=== PATIENT | female | born 1965 | race Caucasian/White ===

== ENCOUNTER → 2017-02-27 | Outpatient (CLI) | payer OTHER ==
[~2017-02-27] MED LIST: ALBUAER2 INH; FLUO10CA48 PO; IBUP-1050 PO; MAGIC MOUTH WASH; METR1GEL3 TD; MULT-506 PO; PRCUNK PO; TRETINOIN TD
--- NOTE | 2017-02-28 16:41 | MAMMOGRAPHY REPORT ---
BILATERAL DIGITAL SCREENING MAMMOGRAM TOMOSYNTHESIS WITH CAD: 02/27/2017 CLINICAL HISTORY: Routine screening. Patient has no complaints. TECHNIQUE: Breast tomosynthesis in addition to standard 2D mammography was performed. Current study was also evaluated with a Computer Aided Detection (CAD) system. COMPARISON: Comparison is made to exams dated: 12/07/2015 mammogram, 12/04/2014 mammogram, 12/02/2013 mammogram, 11/26/2012 mammogram, 11/21/2011 mammogram, and 11/18/2010 mammogram - [facility]. BREAST COMPOSITION: The tissue of both breasts is extremely dense, which lowers the sensitivity of mammography. FINDINGS: There are diffuse bilateral round and punctate microcalcifications. However, there is a p ossible new grouping of microcalcifications in the lower inner approximate 8:00 left breast for whic h additional spot magnification views are recommended. No other suspicious mass, architectural distortion or cluster of microcalcifications is seen bilater ally. IMPRESSION: ACR BI-RADS CATEGORY 0: INCOMPLETE EVALUATION: NEED ADDITIONAL IMAGING EVALUATION The possible new grouping of microcalcifications in the lower inner quadrant of the left breast need additional evaluation. The patient will be called to schedule an appointment. Approximately 10% of breast cancers are not detected with mammography. A negative mammographic repor t should not delay biopsy if a clinically suggestive mass is present. Dianne Cervantes M.D. ay/:02/28/2017 16:22:03 Improvement Leader: Shruti NDIAYE(R)(M), [facility] letter sent: Addl Imaging 0 BI-RADS Code: ACR BI-RADS Category 0: Incomplete Evaluation: Need Additional Imaging Evaluation
== END | disposition home or self-care (01) ==
LOC: C.MAMM 12:22
PROVIDERS: ATTEND Obstetrics & Gynecology
DX: Z12.31 Encounter for screening mammogram for malignant neoplasm of breast (principal); R92.0 Mammographic microcalcification found on diagnostic imaging of breast

== ENCOUNTER → 2017-03-08 | Outpatient (CLI) | payer OTHER ==
--- NOTE | 2017-03-08 14:10 | MAMMOGRAPHY REPORT ---
UNILATERAL LEFT DIGITAL DIAGNOSTIC MAMMOGRAM: 03/08/2017 CLINICAL HISTORY: Callback from screening mammogram for left breast calcifications. TECHNIQUE: Spot magnification left CC and ML views were obtained. COMPARISON: Comparison is made to exams dated: 02/27/2017 mammogram, 12/07/2015 mammogram, 12/04/2014 mammogram, 12/02/2013 mammogram, 11/26/2012 mammogram, and 11/21/2011 mammogram - [facility]. BREAST COMPOSITION: The tissue of the left breast is extremely dense, which lowers the sensitivity of mammography. FINDINGS: Spot magnification views of the left breast demonstrate a small 1 mm cluster of punctate and round calcifications in the left lower inner quadrant. Compared to prior exams, the cluster bridget ears stable compared to the 2015 and 2014 exams when accounting for differences in mammographic tech nique, and may also be stable compared to the cc view from the 2012 exam. Additionally, the cluster appears similar to other scattered and loosely grouped round and punctate benign-appearing calcific ations seen throughout the left and right breast. Given the stability and benign morphology, the ca lcifications are considered benign. IMPRESSION: ACR BI-RADS CATEGORY 2: BENIGN The small cluster of benign-appearing calcifications appears similar to other calcifications seen sc attered throughout both breasts, and appears stable dating back to at least the 2014 exam. The calc ifications are considered benign given the morphology and stability. There is no mammographic evide nce of malignancy. A 1 year screening mammogram is recommended. The patient has been verbally notif ied of the results. Approximately 10% of breast cancers are not detected with mammography. A negative mammographic repor t should not delay biopsy if a clinically suggestive mass is present. Edwige Pepe M.D. /:03/08/2017 09:18:49 Manager Relocation: Hilda Helms RT(R)(M), [facility] letter sent: Normal 1/2 BI-RADS Code: ACR BI-RADS Category 2: Benign
== END | disposition home or self-care (01) ==
LOC: C.MAMM 08:53
PROVIDERS: ATTEND Obstetrics & Gynecology
DX: R92.0 Mammographic microcalcification found on diagnostic imaging of breast (principal)